=== PATIENT | male | born 1960 | race Caucasian/White ===

== ENCOUNTER → 2016-07-26 | Outpatient (CLI) | payer OTHER ==
[~2016-07-26] MED LIST: ANTIVERT/2525 MG PO; BACTRIM DS 8001 TAB PO; CELEXA20 MG PO; CLINDAMYCIN HC300 MG PO; COUMADIN10 M1 PO; COUMADIN2 M1 PO; Coumadin10 MG PO; FLEXERIL5 MG PO; FLOMAX0.4 MG PO; FUROSEMIDE20 M1 PO; HYDROCODONE BIT1 T11 PO; INDOCIN50 MG PO; INDOMETHACIN50 MG PO; KEFLEX500 M1 PO; LOVENOX120 MG/0.8 SC; METOPROLOL SUCC25 M2 PO; METOPROLOL SUCC50 M1 PO; Motrin,Rufen800 MG PO; NKHM; NKHM PO; PERCOCET 325 MG1 TA2 PO; PREDNISONE20 MG PO; SUBOXONE 8 MG-1 EACH SL; TRAMADOL HCL50 MG PO; ULTRAM50 MG PO; VICODIN 5/500 505 MG PO; VICODIN ES 7501 TAB PO; VITAMIN D-32000 UNI1 PO; VOLTAREN50 M1 PO; XARE20MG PO
[2016-07-26 17:19] LABS: INTERNATIONAL NORM RATIO 2.8 (2.0-3.5); PROTHROMBIN TIME 30.1 SECONDS (9.0-12.4)
== END | disposition home or self-care (01) ==
LOC: LAB 16:16
PROVIDERS: Internal Medicine
DX: I48.91 Unspecified atrial fibrillation (principal)

== ENCOUNTER → 2016-10-05 | Outpatient (CLI) | payer OTHER ==
[2016-10-05 09:06] LABS: PROTHROMBIN TIME 34.1 SECONDS (9.0-12.4)
== END | disposition home or self-care (01) ==
LOC: LAB 08:09
PROVIDERS: Internal Medicine Cardiovascular Disease
DX: I48.0 Paroxysmal atrial fibrillation (principal)

== ENCOUNTER → 2016-10-20 | Outpatient (CLI) | payer OTHER ==
[2016-10-20 14:08] LABS: PROTHROMBIN TIME 34.6 SECONDS (9.0-12.4)
== END | disposition home or self-care (01) ==
LOC: LAB 13:00
PROVIDERS: Internal Medicine Cardiovascular Disease
DX: I48.0 Paroxysmal atrial fibrillation (principal)

== ENCOUNTER → 2017-01-20 | Outpatient (CLI) | payer OTHER ==
[2017-01-20 11:34] LABS: INTERNATIONAL NORM RATIO 3.8 (2.0-3.5); PROTHROMBIN TIME 44.4 SECONDS (9.0-12.4)
== END | disposition home or self-care (01) ==
LOC: LAB 11:06
PROVIDERS: Internal Medicine Cardiovascular Disease
DX: I48.0 Paroxysmal atrial fibrillation (principal)

== ENCOUNTER 2018-04-14 09:20 | Emergency (ER) | payer OTHER ==
[~2018-04-14] VITALS: Ht 177.8 cm; Wt 104.3 kg
[2018-04-14] MEDS ORDERED: INDOMETHACIN50 MG PO (09:36)
== END 2018-04-14 10:15 | disposition home or self-care (01) ==
LOC: ED 09:20
DX: M10.9 Gout, unspecified (principal); I11.0 Hypertensive heart disease with heart failure; I50.33 Acute on chronic diastolic (congestive) heart failure; K21.9 Gastro-esophageal reflux disease without esophagitis; I48.2 Chronic atrial fibrillation; N40.0 Benign prostatic hyperplasia without lower urinary tract symptoms; Z79.899 Other long term (current) drug therapy; Z68.34 Body mass index [BMI] 34.0-34.9, adult; Z86.718 Personal history of other venous thrombosis and embolism

== ENCOUNTER 2018-04-19 14:06 | Emergency (ER) | payer OTHER ==
[~2018-04-19] VITALS: Ht 177.8 cm; Wt 102.1 kg
[2018-04-19] MEDS ORDERED: MEDROL DOSEPAK4 MG PO (16:38)
[2018-04-19] MEDS ORDERED: NORCO 10-325 T1 EACH PO (16:38)
== END 2018-04-19 16:46 | disposition home or self-care (01) ==
LOC: ED 14:06
DX: M17.11 Unilateral primary osteoarthritis, right knee (principal); I11.0 Hypertensive heart disease with heart failure; I50.33 Acute on chronic diastolic (congestive) heart failure; K21.9 Gastro-esophageal reflux disease without esophagitis; I48.2 Chronic atrial fibrillation; E66.9 Obesity, unspecified; Z79.01 Long term (current) use of anticoagulants; Z79.899 Other long term (current) drug therapy; Z86.718 Personal history of other venous thrombosis and embolism; Z68.30 Body mass index [BMI] 30.0-30.9, adult

== ENCOUNTER 2018-07-25 09:35 | Emergency (ER) | payer OTHER ==
[~2018-07-25 09:35] MED LIST changes: +MEDROL DOSEPAK4 MG PO; +NORCO 10-325 T1 EACH PO
[2018-07-25] MEDS ORDERED: ULTRAM50 MG PO (11:24)
[2018-07-25] MEDS ORDERED: PREDNISONE50 MG PO (11:24)
== END 2018-07-25 11:28 | disposition home or self-care (01) ==
LOC: ED 09:35
DX: M25.562 Pain in left knee (principal); Z79.899 Other long term (current) drug therapy; Z79.01 Long term (current) use of anticoagulants

== ENCOUNTER 2018-09-19 20:58 | Emergency (ER) | payer OTHER ==
[~2018-09-19] VITALS: Wt 106.6 kg
[~2018-09-19 20:58] MED LIST changes: +PREDNISONE50 MG PO
== END 2018-09-19 22:55 | disposition home or self-care (01) ==
LOC: ED 20:58
DX: S63.592A Other specified sprain of left wrist, initial encounter (principal); Z98.890 Other specified postprocedural states; Z79.01 Long term (current) use of anticoagulants; Z79.899 Other long term (current) drug therapy; W17.89XA Other fall from one level to another, initial encounter; Y93.89 Activity, other specified; Y92.69 Other specified industrial and construction area as the place of occurrence of the external cause; Y99.9 Unspecified external cause status

== ENCOUNTER 2019-09-23 17:44 | Emergency (ER) | payer BC | END 2019-09-23 20:53 | disposition home or self-care (01) | LOC: ED 17:44 | DX: S39.011A Strain of muscle, fascia and tendon of abdomen, initial encounter (principal); M25.551 Pain in right hip; M10.9 Gout, unspecified; I89.1 Lymphangitis; Z79.899 Other long term (current) drug therapy; Z79.01 Long term (current) use of anticoagulants; X58.XXXA Exposure to other specified factors, initial encounter; Y93.89 Activity, other specified; Y92.89 Other specified places as the place of occurrence of the external cause; Y99.8 Other external cause status ==

== ENCOUNTER 2020-02-14 21:50 | Emergency (ER) | payer BC ==
[~2020-02-14] VITALS: Ht 180.3 cm; Wt 104.3 kg
== END 2020-02-15 00:01 | disposition home or self-care (01) ==
LOC: ED 21:50
DX: S00.03XA Contusion of scalp, initial encounter (principal); M19.90 Unspecified osteoarthritis, unspecified site; K21.9 Gastro-esophageal reflux disease without esophagitis; I10 Essential (primary) hypertension; M10.9 Gout, unspecified; E66.09 Other obesity due to excess calories; I48.20 Chronic atrial fibrillation, unspecified; Z79.01 Long term (current) use of anticoagulants; Z79.899 Other long term (current) drug therapy; Z86.718 Personal history of other venous thrombosis and embolism; Z87.891 Personal history of nicotine dependence; W01.0XXA Fall on same level from slipping, tripping and stumbling without subsequent striking against object, initial encounter; Y93.89 Activity, other specified; Y92.89 Other specified places as the place of occurrence of the external cause; Y99.8 Other external cause status

== ENCOUNTER → 2020-11-20 | Outpatient (CLI) | payer SELFPAY | END | disposition home or self-care (01) | LOC: RESCLI 00:37 | PROVIDERS: ATTEND Internal Medicine | DX: I48.91 Unspecified atrial fibrillation (principal); M19.90 Unspecified osteoarthritis, unspecified site; E55.9 Vitamin D deficiency, unspecified; R73.03 Prediabetes; G47.33 Obstructive sleep apnea (adult) (pediatric); Z79.899 Other long term (current) drug therapy; Z98.890 Other specified postprocedural states ==

== ENCOUNTER → 2021-07-20 | Outpatient (CLI) | payer OTHER | END | disposition home or self-care (01) | LOC: COVID19 17:17 | PROVIDERS: ATTEND Podiatrist Foot & Ankle Surgery | DX: Z20.822 Contact with and (suspected) exposure to COVID-19 (principal) ==

== ENCOUNTER → 2021-12-14 | Outpatient (CLI) | payer BC | END | disposition home or self-care (01) | LOC: RESCLI 15:05 | PROVIDERS: ATTEND Internal Medicine | DX: M19.90 Unspecified osteoarthritis, unspecified site (principal); M25.569 Pain in unspecified knee; E55.9 Vitamin D deficiency, unspecified; N40.0 Benign prostatic hyperplasia without lower urinary tract symptoms; I48.91 Unspecified atrial fibrillation; Z79.899 Other long term (current) drug therapy ==

== ENCOUNTER 2022-06-07 20:03 | Emergency (ER) | payer BC ==
[~2022-06-07] VITALS: Ht 177.8 cm; Wt 81.6 kg
== END 2022-06-07 23:43 | disposition home or self-care (01) ==
LOC: ED 20:03
DX: Z00.00 Encounter for general adult medical examination without abnormal findings (principal); Z79.899 Other long term (current) drug therapy

== ENCOUNTER 2022-08-01 13:04 | Emergency (ER) | payer BC ==
[~2022-08-01] VITALS: Ht 177.8 cm; Wt 86.2 kg
[2022-08-01 13:54] LABS: BASO % 0.3 % (0.0-1.0); EOS % 0.1 % (1.0-4.0); HEMATOCRIT 49.4 % (42.0-52.0); LYMPH # 1.1 10*3/uL (1.3-4.4); LYMPH % 10.1 % (27.0-41.0); MEAN CELL VOLUME 83.9 fl (80.0-94.0); MEAN CORPUSCULAR HGB 26.3 pg (27.0-31.0); MEAN CORPUSCULAR HGB CONC 31.4 g/dl (33.0-37.0); MEAN PLATELET VOLUME 10.6 fl (9.6-12.3); MONO # 0.3 10*3/uL (0.1-1.0); MONO % 2.3 % (3.0-9.0); NEUT # 9.3 10*3/uL (2.3-7.9); NEUT % 86.9 % (47.0-73.0); PLATELET COUNT AUTOMATED 192 10*3/uL (130-400); RED BLOOD COUNT 5.89 10*6/uL (4.50-5.90); RED CELL DISTRI WIDTH 12.7 % (0-14.5); WHITE BLOOD COUNT 10.7 10*3/uL (4.8-10.8)
[2022-08-01 14:09] LABS: ALKALINE PHOSPHATASE 95 U/L (46-116); BUN 16 mg/dl (9-23); CHLORIDE 103 mmol/L (98-107); POTASSIUM 4.3 mmol/L (3.4-5.1); SGPT/ALT 33 U/L (10-49); TOTAL PROTEIN 7.3 gm/dL (6.0-8.0)
[2022-08-01 14:49] LABS: URINE AMPHETAMINES Negative (1000ng/ml); URINE BARBITURATES Negative (200ng/ml); URINE BENZODIAZEPINES Negative (200ng/ml); URINE CANNABINOIDS (THC) Negative (50ng/ml); URINE COCAINE Positive (300ng/ml); URINE METHADONE Negative (300ng/ml); URINE OPIATES Negative (300ng/ml); URINE PHENCYCLIDINE Negative (25ng/ml)
== END 2022-08-01 16:44 | disposition short-term general hospital (02) ==
LOC: ED 13:04
PROVIDERS: Nurse Practitioner Family
DX: S00.83XA Contusion of other part of head, initial encounter (principal); S09.93XA Unspecified injury of face, initial encounter; Z79.899 Other long term (current) drug therapy; F17.220 Nicotine dependence, chewing tobacco, uncomplicated; R58 Hemorrhage, not elsewhere classified; W22.8XXA Striking against or struck by other objects, initial encounter; Y93.89 Activity, other specified; Z98.890 Other specified postprocedural states; Y92.89 Other specified places as the place of occurrence of the external cause; Y99.0 Civilian activity done for income or pay

== ENCOUNTER 2022-08-10 15:45 | Emergency (ER) | payer OTHER, BC ==
[~2022-08-10] VITALS: Wt 83.9 kg
[2022-08-11] MEDS ORDERED: SEPTDS PO (18:00)
== END 2022-08-10 18:24 | disposition left against medical advice (07) ==
LOC: ED 15:45
DX: Z53.21 Procedure and treatment not carried out due to patient leaving prior to being seen by health care provider (principal)

== ENCOUNTER 2022-08-11 16:42 | Emergency (ER) | payer BC ==
[~2022-08-11] VITALS: Ht 177.8 cm; Wt 83.9 kg
[2022-08-11 17:34] LABS: BASO # 0.1 10*3/uL (0.0-0.1); BASO % 0.7 % (0.0-1.0); EOS # 0.1 10*3/uL (0.0-0.4); LYMPH # 1.9 10*3/uL (1.3-4.4); LYMPH % 27.1 % (27.0-41.0); MEAN CELL VOLUME 84.6 fl (80.0-94.0); MEAN CORPUSCULAR HGB 26.6 pg (27.0-31.0); MEAN CORPUSCULAR HGB CONC 31.4 g/dl (33.0-37.0); MEAN PLATELET VOLUME 10.5 fl (9.6-12.3); MONO # 0.5 10*3/uL (0.1-1.0); MONO % 7.1 % (3.0-9.0); NEUT # 4.5 10*3/uL (2.3-7.9); NEUT % 62.7 % (47.0-73.0); PLATELET COUNT AUTOMATED 221 10*3/uL (130-400); RED BLOOD COUNT 5.79 10*6/uL (4.50-5.90); RED CELL DISTRI WIDTH 13.2 % (0-14.5); WHITE BLOOD COUNT 7.2 10*3/uL (4.8-10.8)
[2022-08-11 17:48] LABS: BUN 16 mg/dl (9-23); CHLORIDE 102 mmol/L (98-107); POTASSIUM 4.5 mmol/L (3.4-5.1)
[2022-08-11] MEDS ORDERED: SEPTDS PO (18:00)
== END 2022-08-11 18:09 | disposition home or self-care (01) ==
LOC: ED 16:42
PROVIDERS: Internal Medicine
DX: L03.116 Cellulitis of left lower limb (principal); Z79.899 Other long term (current) drug therapy

== ENCOUNTER 2022-08-14 11:31 | Emergency (ER) | payer OTHER, BC ==
[~2022-08-14] VITALS: Ht 177.8 cm; Wt 85.3 kg
[~2022-08-14 11:31] MED LIST changes: +SEPTDS PO
[2022-08-14 12:25] LABS: BASO % 0.6 % (0.0-1.0); EOS # 0.1 10*3/uL (0.0-0.4); LYMPH # 1.5 10*3/uL (1.3-4.4); LYMPH % 22.4 % (27.0-41.0); MEAN CELL VOLUME 82.7 fl (80.0-94.0); MEAN CORPUSCULAR HGB 26.1 pg (27.0-31.0); MEAN CORPUSCULAR HGB CONC 31.6 g/dl (33.0-37.0); MEAN PLATELET VOLUME 10.1 fl (9.6-12.3); MONO # 0.4 10*3/uL (0.1-1.0); MONO % 5.4 % (3.0-9.0); NEUT # 4.8 10*3/uL (2.3-7.9); NEUT % 70.5 % (47.0-73.0); PLATELET COUNT AUTOMATED 248 10*3/uL (130-400); RED BLOOD COUNT 6.17 10*6/uL (4.50-5.90); RED CELL DISTRI WIDTH 13.2 % (0-14.5); WHITE BLOOD COUNT 6.8 10*3/uL (4.8-10.8)
[2022-08-14 12:42] LABS: ALKALINE PHOSPHATASE 99 U/L (46-116); BUN 16 mg/dl (9-23); CHLORIDE 103 mmol/L (98-107); SGPT/ALT 34 U/L (10-49); TOTAL PROTEIN 7.5 gm/dL (6.0-8.0)
== END 2022-08-14 14:37 | disposition home or self-care (01) ==
LOC: ED 11:31
PROVIDERS: Student in an Organized Health Care Education/Training Program
DX: S80.12XA Contusion of left lower leg, initial encounter (principal); X58.XXXA Exposure to other specified factors, initial encounter; Y93.89 Activity, other specified; Y92.89 Other specified places as the place of occurrence of the external cause; Y99.8 Other external cause status; Z98.890 Other specified postprocedural states

== ENCOUNTER → 2023-07-12 | Outpatient (CLI) | payer BC | END | disposition home or self-care (01) | LOC: RESCLI 01:50 | PROVIDERS: ATTEND Internal Medicine | DX: G47.33 Obstructive sleep apnea (adult) (pediatric) (principal); I48.91 Unspecified atrial fibrillation; N40.0 Benign prostatic hyperplasia without lower urinary tract symptoms; F43.10 Post-traumatic stress disorder, unspecified; Z79.899 Other long term (current) drug therapy; Z82.49 Family history of ischemic heart disease and other diseases of the circulatory system; Z86.718 Personal history of other venous thrombosis and embolism ==

== ENCOUNTER 2023-09-26 14:04 | Emergency (ER) | payer SELFPAY ==
[~2023-09-26] VITALS: Ht 177.8 cm; Wt 90.7 kg
[2023-09-26 14:35] LABS: BASO % 0.8 % (0.0-1.0); EOS # 0.1 10*3/uL (0.0-0.4); EOS % 1.9 % (1.0-4.0); HEMATOCRIT 45.4 % (42.0-52.0); LYMPH # 1.4 10*3/uL (1.3-4.4); LYMPH % 26.6 % (27.0-41.0); MEAN CELL VOLUME 86.3 fl (80.0-94.0); MEAN CORPUSCULAR HGB 26.6 pg (27.0-31.0); MEAN CORPUSCULAR HGB CONC 30.8 g/dl (33.0-37.0); MEAN PLATELET VOLUME 10.5 fl (9.6-12.3); MONO # 0.3 10*3/uL (0.1-1.0); MONO % 5.9 % (3.0-9.0); NEUT # 3.4 10*3/uL (2.3-7.9); NEUT % 64.6 % (47.0-73.0); PLATELET COUNT AUTOMATED 210 10*3/uL (130-400); RED BLOOD COUNT 5.26 10*6/uL (4.50-5.90); RED CELL DISTRI WIDTH 12.6 % (0-14.5); WHITE BLOOD COUNT 5.3 10*3/uL (4.8-10.8)
[2023-09-26 14:50] LABS: ACT PARTIAL THROMBO TIME 42.4 SECONDS (20.0-32.1)
[2023-09-26 14:59] LABS: ALKALINE PHOSPHATASE 84 U/L (46-116); BUN 13 mg/dl (9-23); CHLORIDE 102 mmol/L (98-107); LIPASE 40 U/L (12-53); SGPT/ALT 24 U/L (5-49); TOTAL PROTEIN 7.8 gm/dL (6.0-8.0)
[2023-09-26] MEDS ORDERED: LISINOPRIL 10 MG TAB PO ONE (16:00)
[2023-09-26] MEDS ORDERED: ZESTRIL10 MG PO (17:09)
== END 2023-09-26 17:02 | disposition home or self-care (01) ==
LOC: ED 14:04
PROVIDERS: Emergency Medicine
DX: I10 Essential (primary) hypertension (principal); I48.91 Unspecified atrial fibrillation; M10.9 Gout, unspecified; Z88.8 Allergy status to other drugs, medicaments and biological substances; F17.220 Nicotine dependence, chewing tobacco, uncomplicated

== ENCOUNTER 2023-10-01 22:00 | Emergency (ER) | payer SELFPAY ==
[~2023-10-01] VITALS: Ht 180.3 cm; Wt 90.7 kg
[~2023-10-01 22:00] MED LIST changes: +ZESTRIL10 MG PO
[2023-10-01] MEDS ORDERED: MELOXICAM15 MG PO (22:55)
[2023-10-01] MEDS ORDERED: VISTARIL25 M2 PO (22:55)
[2023-10-01] MEDS ORDERED: Ketorolac Tromethamine 60 MG/2 ML VIAL IM ONE (22:55)
== END 2023-10-01 23:52 | disposition home or self-care (01) ==
LOC: ED 22:00
DX: K04.7 Periapical abscess without sinus (principal); F41.9 Anxiety disorder, unspecified; K02.9 Dental caries, unspecified; I10 Essential (primary) hypertension; M10.9 Gout, unspecified; I48.91 Unspecified atrial fibrillation; Z98.890 Other specified postprocedural states; F17.220 Nicotine dependence, chewing tobacco, uncomplicated

== ENCOUNTER 2023-12-19 07:27 | Emergency (ER) | payer SELFPAY ==
[~2023-12-19] VITALS: Ht 180.3 cm; Wt 99.8 kg
[~2023-12-19 07:27] MED LIST changes: +MELOXICAM15 MG PO; +VISTARIL25 M2 PO
[2023-12-19] MEDS ORDERED: XARELTO20 M1 PO (07:46)
[2023-12-19] MEDS ORDERED: predniSONE 20 MG TAB PO ONE (08:35)
[2023-12-19] MEDS ORDERED: PREDNISONE20 M1 PO (08:47)
== END 2023-12-19 09:08 | disposition home or self-care (01) ==
LOC: ED 07:27
DX: L50.9 Urticaria, unspecified (principal); F17.220 Nicotine dependence, chewing tobacco, uncomplicated; Z79.899 Other long term (current) drug therapy; Z98.890 Other specified postprocedural states

== ENCOUNTER 2024-02-13 22:18 | Emergency (ER) | payer SELFPAY ==
[~2024-02-13] VITALS: Ht 177.8 cm; Wt 95.3 kg
[~2024-02-13 22:18] MED LIST changes: +PREDNISONE20 M1 PO; +XARELTO20 M1 PO
[2024-02-13] MEDS ORDERED: PREDNISONE20 M1 PO (22:28)
[2024-02-13] MEDS ORDERED: FAMOTIDINE 50 ML IV ONE (22:45)
[2024-02-13] MEDS ORDERED: diphenhydrAMINE hydrochloride 50 MG/ML VIAL IV ONE (22:45)
[2024-02-13] MEDS ORDERED: methylPREDNISolone sod succ 125 MG VIAL IV ONE (22:45)
[2024-02-14] MEDS ORDERED: PREDNISONE20 M1 PO (00:11)
== END 2024-02-14 00:26 | disposition home or self-care (01) ==
LOC: ED 22:18
DX: T78.49XA Other allergy, initial encounter (principal); R21 Rash and other nonspecific skin eruption; F17.220 Nicotine dependence, chewing tobacco, uncomplicated; Z79.899 Other long term (current) drug therapy; Z98.890 Other specified postprocedural states; X58.XXXA Exposure to other specified factors, initial encounter

== ENCOUNTER 2024-03-29 21:45 | Emergency (ER) | payer SELFPAY ==
[~2024-03-29] VITALS: Ht 180.3 cm; Wt 97.5 kg
[2024-03-29] MEDS ORDERED: diphenhydrAMINE hydrochloride 50 MG/ML VIAL IV ONE (22:15)
[2024-03-29] MEDS ORDERED: EPINEPHrine Hydrochloride 1 MG/ML AMP IM ONE (22:15)
[2024-03-29] MEDS ORDERED: FAMOTIDINE 50 ML IV ONE (22:15)
[2024-03-29] MEDS ORDERED: Dexamethasone Sodium Phospha 20 MG/5 ML VIAL IV ONE (22:15)
[2024-03-29 22:30] LABS: BASO % 0.1 % (0.0-1.0); EOS # 0.1 10*3/uL (0.0-0.4); EOS % 1.5 % (1.0-4.0); HEMATOCRIT 43.4 % (42.0-52.0); LYMPH # 1.6 10*3/uL (1.3-4.4); LYMPH % 23.7 % (27.0-41.0); MEAN CELL VOLUME 85.4 fl (80.0-94.0); MEAN CORPUSCULAR HGB 26.6 pg (27.0-31.0); MEAN CORPUSCULAR HGB CONC 31.1 g/dl (33.0-37.0); MEAN PLATELET VOLUME 10.3 fl (9.6-12.3); MONO # 0.4 10*3/uL (0.1-1.0); MONO % 6.5 % (3.0-9.0); NEUT # 4.6 10*3/uL (2.3-7.9); NEUT % 68.1 % (47.0-73.0); PLATELET COUNT AUTOMATED 212 10*3/uL (130-400); RED BLOOD COUNT 5.08 10*6/uL (4.50-5.90); RED CELL DISTRI WIDTH 13.4 % (0-14.5); WHITE BLOOD COUNT 6.7 10*3/uL (4.8-10.8)
[2024-03-29 22:52] LABS: BUN 21 mg/dl (9-23); CHLORIDE 105 mmol/L (98-107); POTASSIUM 3.8 mmol/L (3.4-5.1)
[2024-03-30] MEDS ORDERED: EPIPEN 2-P0.3 MG/0.3 IJ (01:41)
[2024-03-30] MEDS ORDERED: MEDROL DOSEPAK4 MG PO (01:41)
== END 2024-03-30 02:36 | disposition home or self-care (01) ==
LOC: ED 21:45
PROVIDERS: Internal Medicine
DX: T78.2XXA Anaphylactic shock, unspecified, initial encounter (principal); L50.9 Urticaria, unspecified; R22.0 Localized swelling, mass and lump, head; I10 Essential (primary) hypertension; M10.9 Gout, unspecified; I48.91 Unspecified atrial fibrillation; F17.220 Nicotine dependence, chewing tobacco, uncomplicated; Z98.890 Other specified postprocedural states

== ENCOUNTER 2024-06-07 15:57 | Emergency (ER) | payer SELFPAY ==
[~2024-06-07] VITALS: Ht 177.8 cm; Wt 97.5 kg
[~2024-06-07 15:57] MED LIST changes: +EPIPEN 2-P0.3 MG/0.3 IJ
[2024-06-07] MEDS ORDERED: VISTARIL25 MG PO (16:29)
[2024-06-07] MEDS ORDERED: PREDNISONE20 M1 PO (16:29)
[2024-06-07] MEDS ORDERED: methylPREDNISolone sod succ 125 MG VIAL IM ONE (16:30)
== END 2024-06-07 16:53 | disposition home or self-care (01) ==
LOC: ED 15:57
DX: L50.9 Urticaria, unspecified (principal); I10 Essential (primary) hypertension; M10.9 Gout, unspecified; I48.91 Unspecified atrial fibrillation; F17.220 Nicotine dependence, chewing tobacco, uncomplicated; Z98.890 Other specified postprocedural states

== ENCOUNTER 2024-06-29 12:43 | Emergency (ER) | payer SELFPAY ==
[~2024-06-29] VITALS: Ht 180.3 cm; Wt 104.3 kg
[~2024-06-29 12:43] MED LIST changes: +VISTARIL25 MG PO
[2024-06-29 14:22] LABS: BASO % 0.3 % (0.0-1.0); EOS # 0.2 10*3/uL (0.0-0.4); EOS % 2.5 % (1.0-4.0); HEMATOCRIT 42.7 % (42.0-52.0); MEAN CELL VOLUME 86.1 fl (80.0-94.0); MEAN CORPUSCULAR HGB 26.6 pg (27.0-31.0); MEAN CORPUSCULAR HGB CONC 30.9 g/dl (33.0-37.0); MONO # 0.6 10*3/uL (0.1-1.0); MONO % 6.5 % (3.0-9.0); NEUT % 75.4 % (47.0-73.0); PLATELET COUNT AUTOMATED 240 10*3/uL (130-400); RED BLOOD COUNT 4.96 10*6/uL (4.50-5.90); RED CELL DISTRI WIDTH 12.9 % (0-14.5); WHITE BLOOD COUNT 9.3 10*3/uL (4.8-10.8)
[2024-06-29 14:47] LABS: BUN 10 mg/dl (9-23); CHLORIDE 101 mmol/L (98-107)
[2024-06-29] MEDS ORDERED: VIBRAMYCIN100 MG PO (14:53)
[2024-06-29] MEDS ORDERED: AMOX-CLAV 875-1 EACH PO (14:53)
[2024-06-29] MEDS ORDERED: Amoxicillin/Clavulanate Pota 875 MG TAB PO ONE (14:55)
[2024-06-29] MEDS ORDERED: Doxycycline Hyclate 100 MG CAP PO ONE (14:55)
== END 2024-06-29 15:14 | disposition home or self-care (01) ==
LOC: ED 12:43
PROVIDERS: Physician Assistant Medical
DX: J18.9 Pneumonia, unspecified organism (principal); F41.9 Anxiety disorder, unspecified; I11.0 Hypertensive heart disease with heart failure; I50.9 Heart failure, unspecified; I48.91 Unspecified atrial fibrillation; M10.9 Gout, unspecified; K21.9 Gastro-esophageal reflux disease without esophagitis; F17.220 Nicotine dependence, chewing tobacco, uncomplicated; Z86.718 Personal history of other venous thrombosis and embolism; Z98.890 Other specified postprocedural states

== ENCOUNTER 2024-07-18 10:26 | Emergency (ER) | payer SELFPAY ==
[~2024-07-18] VITALS: Ht 180.3 cm; Wt 102.1 kg
[~2024-07-18 10:26] MED LIST changes: +AMOX-CLAV 875-1 EACH PO; +VIBRAMYCIN100 MG PO
[2024-07-18] MEDS ORDERED: TRIAMCINOLONE ACETONIDE 40 MG/ML VIAL IM ONE (11:05)
[2024-07-18] MEDS ORDERED: ZYRTEC10 M2 PO (11:08)
[2024-07-18] MEDS ORDERED: PEPCID40 MG PO (11:08)
== END 2024-07-18 11:25 | disposition home or self-care (01) ==
LOC: ED 10:26
DX: L50.9 Urticaria, unspecified (principal); R21 Rash and other nonspecific skin eruption; I10 Essential (primary) hypertension; M10.9 Gout, unspecified; I48.91 Unspecified atrial fibrillation; F17.220 Nicotine dependence, chewing tobacco, uncomplicated; Z98.890 Other specified postprocedural states

== ENCOUNTER 2024-07-27 22:07 | Emergency (ER) | payer SELFPAY ==
[~2024-07-27] VITALS: Ht 177.8 cm; Wt 90.7 kg
[~2024-07-27 22:07] MED LIST changes: +PEPCID40 MG PO; +ZYRTEC10 M2 PO
[2024-07-27] MEDS ORDERED: HYDROXYZINE HCL25 MG PO (22:28)
[2024-07-27] MEDS ORDERED: methylPREDNISolone sod succ 125 MG VIAL IM ONE (22:30)
[2024-07-27] MEDS ORDERED: hydrOXYzine pamoate 25 MG CAP PO ONE (22:30)
== END 2024-07-27 22:34 | disposition home or self-care (01) ==
LOC: ED 22:07
DX: F41.9 Anxiety disorder, unspecified (principal); L50.9 Urticaria, unspecified; H57.89 Other specified disorders of eye and adnexa; F17.220 Nicotine dependence, chewing tobacco, uncomplicated; Z79.899 Other long term (current) drug therapy; Z98.890 Other specified postprocedural states

== ENCOUNTER 2024-08-25 11:36 | Emergency (ER) | payer SELFPAY ==
[~2024-08-25] VITALS: Ht 180.3 cm; Wt 104.3 kg
[~2024-08-25 11:36] MED LIST changes: +HYDROXYZINE HCL25 MG PO
[2024-08-25] MEDS ORDERED: Dexamethasone Sodium Phospha 20 MG/5 ML VIAL IM ONE (11:50)
== END 2024-08-25 13:08 | disposition home or self-care (01) ==
LOC: ED 11:36
DX: R21 Rash and other nonspecific skin eruption (principal); M25.522 Pain in left elbow; I10 Essential (primary) hypertension; M10.9 Gout, unspecified; I48.91 Unspecified atrial fibrillation; F17.220 Nicotine dependence, chewing tobacco, uncomplicated; Z98.890 Other specified postprocedural states

== ENCOUNTER 2024-08-30 09:55 | Emergency (ER) | payer SELFPAY ==
[~2024-08-30] VITALS: Ht 175.2 cm; Wt 90.7 kg
== END 2024-08-30 12:05 | disposition left against medical advice (07) ==
LOC: ED 09:55
DX: R05.9 Cough, unspecified (principal); R09.89 Other specified symptoms and signs involving the circulatory and respiratory systems; Z53.21 Procedure and treatment not carried out due to patient leaving prior to being seen by health care provider

== ENCOUNTER 2024-09-29 09:07 | Emergency (ER) | payer SELFPAY ==
[~2024-09-29] VITALS: Ht 177.8 cm; Wt 95.3 kg
[2024-09-29] MEDS ORDERED: Dexamethasone Sodium Phospha 20 MG/5 ML VIAL IM ONE (09:30)
== END 2024-09-29 10:07 | disposition home or self-care (01) ==
LOC: ED 09:07
DX: R22.0 Localized swelling, mass and lump, head (principal); I11.0 Hypertensive heart disease with heart failure; I50.9 Heart failure, unspecified; E78.5 Hyperlipidemia, unspecified; F41.9 Anxiety disorder, unspecified; F17.220 Nicotine dependence, chewing tobacco, uncomplicated; Z79.899 Other long term (current) drug therapy; Z98.890 Other specified postprocedural states

== ENCOUNTER → 2024-11-05 | Outpatient (CLI) | payer MEDICAID, OTHER | END | disposition home or self-care (01) | LOC: RESCLI 05:20 | PROVIDERS: ATTEND Internal Medicine | DX: I48.91 Unspecified atrial fibrillation (principal); N40.0 Benign prostatic hyperplasia without lower urinary tract symptoms; Z79.899 Other long term (current) drug therapy; Z98.890 Other specified postprocedural states ==

== ENCOUNTER 2024-11-08 16:33 | Emergency (ER) | payer MEDICAID, OTHER ==
[~2024-11-08] VITALS: Ht 177.8 cm; Wt 99.8 kg
[2024-11-08] MEDS ORDERED: Dexamethasone Sodium Phospha 20 MG/5 ML VIAL IM ONE (17:25)
[2024-11-08] MEDS ORDERED: PREDNISONE20 M1 PO (17:30)
== END 2024-11-08 17:36 | disposition home or self-care (01) ==
LOC: ED 16:33
DX: L50.9 Urticaria, unspecified (principal); I11.0 Hypertensive heart disease with heart failure; I50.9 Heart failure, unspecified; E78.5 Hyperlipidemia, unspecified; F41.9 Anxiety disorder, unspecified; Z79.899 Other long term (current) drug therapy; Z98.890 Other specified postprocedural states

== ENCOUNTER 2024-11-13 08:25 | Emergency (ER) | payer OTHER ==
[~2024-11-13] VITALS: Ht 177.8 cm; Wt 99.8 kg
[2024-11-13] MEDS ORDERED: Dexamethasone Sodium Phospha 20 MG/5 ML VIAL IM ONE (09:00)
== END 2024-11-13 09:17 | disposition home or self-care (01) ==
LOC: ED 08:25
DX: L50.9 Urticaria, unspecified (principal); I10 Essential (primary) hypertension; F17.200 Nicotine dependence, unspecified, uncomplicated; Z79.899 Other long term (current) drug therapy; Z98.890 Other specified postprocedural states

== ENCOUNTER 2024-11-24 09:45 | Emergency (ER) | payer OTHER ==
[~2024-11-24] VITALS: Ht 180.3 cm; Wt 102.1 kg
[2024-11-24] MEDS ORDERED: DECADRON4 MG PO (10:58)
[2024-11-24] MEDS ORDERED: CEPHALEXIN500 M1 PO (10:58)
[2024-11-24] MEDS ORDERED: dexAMETHasone 4 MG TAB PO ONE (11:00)
[2024-11-24] MEDS ORDERED: CEPHALEXIN 500 MG CAP PO ONE (11:00)
== END 2024-11-24 11:08 | disposition home or self-care (01) ==
LOC: ED 09:45
DX: L50.9 Urticaria, unspecified (principal); L03.115 Cellulitis of right lower limb; F17.220 Nicotine dependence, chewing tobacco, uncomplicated; Z91.048 Other nonmedicinal substance allergy status; Z79.899 Other long term (current) drug therapy; Z98.890 Other specified postprocedural states

== ENCOUNTER 2024-11-27 16:51 | Emergency (ER) | payer OTHER ==
[~2024-11-27] VITALS: Ht 177.8 cm; Wt 99.8 kg
[~2024-11-27 16:51] MED LIST changes: +CEPHALEXIN500 M1 PO; +DECADRON4 MG PO
[2024-11-27 20:17] LABS: BASO % 0.4 % (0.0-1.0); EOS # 0.1 10*3/uL (0.0-0.4); EOS % 1.8 % (1.0-4.0); HEMATOCRIT 44.9 % (42.0-52.0); MEAN CELL VOLUME 87.5 fl (80.0-94.0); MEAN CORPUSCULAR HGB 26.7 pg (27.0-31.0); MEAN CORPUSCULAR HGB CONC 30.5 g/dl (33.0-37.0); MEAN PLATELET VOLUME 10.4 fl (9.6-12.3); MONO # 0.5 10*3/uL (0.1-1.0); MONO % 6.3 % (3.0-9.0); NEUT # 4.6 10*3/uL (2.3-7.9); NEUT % 62.7 % (47.0-73.0); PLATELET COUNT AUTOMATED 198 10*3/uL (130-400); RED BLOOD COUNT 5.13 10*6/uL (4.50-5.90); RED CELL DISTRI WIDTH 13.2 % (0-14.5); WHITE BLOOD COUNT 7.3 10*3/uL (4.8-10.8)
[2024-11-27 20:50] LABS: BUN 18 mg/dl (9-23); CHLORIDE 105 mmol/L (98-107); POTASSIUM 3.8 mmol/L (3.4-5.1)
[2024-11-27] MEDS ORDERED: PREDNISONE20 M1 PO (21:33)
[2024-11-27] MEDS ORDERED: methylPREDNISolone sod succ 125 MG VIAL IM ONE (21:35)
== END 2024-11-27 21:43 | disposition home or self-care (01) ==
LOC: ED 16:51
PROVIDERS: Nurse Practitioner Family
DX: S81.801A Unspecified open wound, right lower leg, initial encounter (principal); L29.9 Pruritus, unspecified; I10 Essential (primary) hypertension; F17.200 Nicotine dependence, unspecified, uncomplicated; Z79.899 Other long term (current) drug therapy; Z98.890 Other specified postprocedural states; X58.XXXA Exposure to other specified factors, initial encounter; Y93.89 Activity, other specified; Y92.89 Other specified places as the place of occurrence of the external cause; Y99.8 Other external cause status

== ENCOUNTER → 2024-11-28 | Outpatient (CLI) | payer OTHER | END | disposition home or self-care (01) | LOC: WOUNDCARE 11:25 | PROVIDERS: ATTEND Nurse Practitioner Family | DX: R21 Rash and other nonspecific skin eruption (principal); L20.9 Atopic dermatitis, unspecified; L03.115 Cellulitis of right lower limb; S81.801A Unspecified open wound, right lower leg, initial encounter; L29.9 Pruritus, unspecified; I48.91 Unspecified atrial fibrillation; I10 Essential (primary) hypertension; K21.9 Gastro-esophageal reflux disease without esophagitis; M10.9 Gout, unspecified; Z86.718 Personal history of other venous thrombosis and embolism; Z98.890 Other specified postprocedural states; Z79.899 Other long term (current) drug therapy; X58.XXXA Exposure to other specified factors, initial encounter; Y93.89 Activity, other specified; Y92.89 Other specified places as the place of occurrence of the external cause; Y99.8 Other external cause status ==

== ENCOUNTER 2024-12-02 13:34 | Emergency (ER) | payer OTHER ==
[~2024-12-02] VITALS: Ht 177.8 cm; Wt 99.8 kg
[2024-12-02 14:07] LABS: BASO % 0.2 % (0.0-1.0); EOS # 0.1 10*3/uL (0.0-0.4); EOS % 0.9 % (1.0-4.0); HEMATOCRIT 43.2 % (42.0-52.0); MEAN CELL VOLUME 84.7 fl (80.0-94.0); MEAN CORPUSCULAR HGB 26.9 pg (27.0-31.0); MEAN CORPUSCULAR HGB CONC 31.7 g/dl (33.0-37.0); MEAN PLATELET VOLUME 10.3 fl (9.6-12.3); MONO # 0.5 10*3/uL (0.1-1.0); MONO % 5.3 % (3.0-9.0); NEUT # 6.1 10*3/uL (2.3-7.9); NEUT % 70.4 % (47.0-73.0); PLATELET COUNT AUTOMATED 206 10*3/uL (130-400); RED CELL DISTRI WIDTH 13.1 % (0-14.5); WHITE BLOOD COUNT 8.7 10*3/uL (4.8-10.8)
[2024-12-02 14:27] LABS: ACT PARTIAL THROMBO TIME 24.1 SECONDS (20.0-32.1)
[2024-12-02 14:29] LABS: ALKALINE PHOSPHATASE 76 U/L (46-116); BUN 15 mg/dl (9-23); CHLORIDE 102 mmol/L (98-107); POTASSIUM 3.3 mmol/L (3.4-5.1); SGPT/ALT 44 U/L (5-49); TOTAL PROTEIN 6.7 gm/dL (6.0-8.0)
[2024-12-02 15:23] LABS: BILIRUBIN Negative (Negative); BLOOD Negative (Negative); CLARITY Clear (Clear); COLOR Yellow (Yellow); GLUCOSE Negative (Negative); KETONE Negative (Negative); LEUKO ESTERASE Negative (Negative); NITRITE Negative (Negative); PH 6.5 (4.5-8.0)
[2024-12-02] MEDS ORDERED: POTASSIUM CHLORIDE 20 MEQ TAB PO ONE (15:40)
== END 2024-12-02 16:49 | disposition home or self-care (01) ==
LOC: ED 13:34
PROVIDERS: Internal Medicine
DX: E87.6 Hypokalemia (principal); R42 Dizziness and giddiness; I10 Essential (primary) hypertension; F41.9 Anxiety disorder, unspecified; I48.91 Unspecified atrial fibrillation; F17.290 Nicotine dependence, other tobacco product, uncomplicated; Z91.018 Allergy to other foods; Z98.890 Other specified postprocedural states

== ENCOUNTER → 2024-12-03 | Outpatient (CLI) | payer OTHER | END | disposition home or self-care (01) | LOC: CARD 11-28 14:00 → LAB 00:08 → WOUNDCARE 00:08 → CARD 00:08 | PROVIDERS: ATTEND Internal Medicine Cardiovascular Disease | DX: I34.0 Nonrheumatic mitral (valve) insufficiency (principal); I48.0 Paroxysmal atrial fibrillation ==

== ENCOUNTER → 2024-12-09 | Outpatient (CLI) | payer OTHER | END | disposition home or self-care (01) | LOC: WOUNDCARE 13:01 | PROVIDERS: ATTEND Nurse Practitioner Family | DX: R21 Rash and other nonspecific skin eruption (principal); L20.9 Atopic dermatitis, unspecified; L03.115 Cellulitis of right lower limb; S81.801D Unspecified open wound, right lower leg, subsequent encounter; L29.9 Pruritus, unspecified; I11.0 Hypertensive heart disease with heart failure; I50.9 Heart failure, unspecified; N40.0 Benign prostatic hyperplasia without lower urinary tract symptoms; I48.91 Unspecified atrial fibrillation; K21.9 Gastro-esophageal reflux disease without esophagitis; M10.9 Gout, unspecified; Z86.718 Personal history of other venous thrombosis and embolism; Z79.899 Other long term (current) drug therapy; Z98.890 Other specified postprocedural states; X58.XXXD Exposure to other specified factors, subsequent encounter ==

== ENCOUNTER → 2024-12-31 | Outpatient (CLI) | payer OTHER | END | disposition home or self-care (01) | LOC: WOUNDCARE 10:09 | PROVIDERS: ATTEND Nurse Practitioner Family | DX: R21 Rash and other nonspecific skin eruption (principal); L20.9 Atopic dermatitis, unspecified; L03.115 Cellulitis of right lower limb; L29.9 Pruritus, unspecified; S81.801D Unspecified open wound, right lower leg, subsequent encounter; I11.0 Hypertensive heart disease with heart failure; I50.9 Heart failure, unspecified; I48.91 Unspecified atrial fibrillation; M10.9 Gout, unspecified; N40.0 Benign prostatic hyperplasia without lower urinary tract symptoms; K21.9 Gastro-esophageal reflux disease without esophagitis; Z86.718 Personal history of other venous thrombosis and embolism; Z98.890 Other specified postprocedural states; Z79.899 Other long term (current) drug therapy; X58.XXXD Exposure to other specified factors, subsequent encounter ==

== ENCOUNTER → 2025-01-13 | Outpatient (CLI) | payer OTHER | END | disposition home or self-care (01) | LOC: WOUNDCARE 00:19 | PROVIDERS: ATTEND Nurse Practitioner Family | DX: S81.801A Unspecified open wound, right lower leg, initial encounter (principal); L03.115 Cellulitis of right lower limb; R21 Rash and other nonspecific skin eruption; L20.9 Atopic dermatitis, unspecified; L29.9 Pruritus, unspecified; N40.0 Benign prostatic hyperplasia without lower urinary tract symptoms; I11.0 Hypertensive heart disease with heart failure; I50.9 Heart failure, unspecified; I48.91 Unspecified atrial fibrillation; K21.9 Gastro-esophageal reflux disease without esophagitis; M10.9 Gout, unspecified; Z86.718 Personal history of other venous thrombosis and embolism; X58.XXXA Exposure to other specified factors, initial encounter; Y93.89 Activity, other specified; Y92.89 Other specified places as the place of occurrence of the external cause; Y99.8 Other external cause status ==

== ENCOUNTER 2025-02-06 10:35 | Emergency (ER) | payer OTHER ==
[~2025-02-06] VITALS: Wt 99.8 kg
[2025-02-06] MEDS ORDERED: FAMOTIDINE 20 MG TAB PO ONE (11:20)
[2025-02-06] MEDS ORDERED: PREDNISONE20 M1 PO (11:45)
== END 2025-02-06 11:48 | disposition home or self-care (01) ==
LOC: ED 10:35
DX: L50.8 Other urticaria (principal); I10 Essential (primary) hypertension; I48.91 Unspecified atrial fibrillation; F17.220 Nicotine dependence, chewing tobacco, uncomplicated; Z79.01 Long term (current) use of anticoagulants; Z91.048 Other nonmedicinal substance allergy status; Z79.899 Other long term (current) drug therapy; Z98.890 Other specified postprocedural states

== ENCOUNTER 2025-04-11 21:38 | Emergency (ER) | payer OTHER ==
[2025-04-11] MEDS ORDERED: SODIUM CHLORIDE 0.9% 1,000 ML IV ONE (22:00)
[2025-04-11] MEDS ORDERED: diphenhydrAMINE hydrochloride 50 MG/ML VIAL IV ONE (22:00)
[2025-04-11] MEDS ORDERED: Metoclopramide Hydrochloride 10 MG/2 ML VIAL IV ONE (22:00)
[2025-04-11 22:11] LABS: BASO # 0.0 10*3/uL (0.0-0.1); BASO % 0.3 % (0.0-1.0); EOS # 0.2 10*3/uL (0.0-0.4); EOS % 2.2 % (1.0-4.0); MEAN CELL VOLUME 85.5 fl (80.0-94.0); MEAN CORPUSCULAR HGB 26.0 pg (27.0-31.0); MEAN PLATELET VOLUME 10.3 fl (9.6-12.3); MONO # 0.5 10*3/uL (0.1-1.0); MONO % 6.6 % (3.0-9.0); NEUT # 4.7 10*3/uL (2.3-7.9); NEUT % 68.3 % (47.0-73.0); NUCLEATED RED BLOOD CELL 0.0 % (0.0-0.0); NUCLEATED RED BLOOD CELL 0.0 10*3/uL (0.0-0.0); PLATELET COUNT AUTOMATED 213 10*3/uL (130-400); RED CELL DISTRI WIDTH 13.2 % (0-14.5)
[2025-04-11 22:33] LABS: BUN 17 mg/dl (9-23)
== END 2025-04-12 00:09 | disposition home or self-care (01) ==
LOC: ED 21:38
PROVIDERS: Nurse Practitioner Family
DX: R51.9 Headache, unspecified (principal); R11.0 Nausea; I11.0 Hypertensive heart disease with heart failure; I50.9 Heart failure, unspecified; I48.91 Unspecified atrial fibrillation; F41.9 Anxiety disorder, unspecified; Z79.899 Other long term (current) drug therapy; K21.9 Gastro-esophageal reflux disease without esophagitis; F17.220 Nicotine dependence, chewing tobacco, uncomplicated; Z86.718 Personal history of other venous thrombosis and embolism; Z98.890 Other specified postprocedural states; Z20.822 Contact with and (suspected) exposure to COVID-19